=== PATIENT | male | born 1940 | race Two or more races ===

== ENCOUNTER → 2017-03-02 | Outpatient (REF) | payer MEDICARE ==
[2017-03-02 17:59] LABS: BASO % 0.5 % (0.0-1.0); EOS # 0.1 K/mm3 (0.0-0.50); EOS % 1.3 % (0.0-3.0); LARGE UNSTAINED CELL # 0.2 K/mm3 (0.0-0.4); LARGE UNSTAINED CELL % 2.3 % (0.0-4.0); LYMPH # 2.2 K/mm3 (1.5-4.5); MEAN CORPUSCULAR HEMOGLOBIN 32.1 pg (27.0-33.0); MEAN CORPUSCULAR HGB CONC 33.2 g/dl (32.0-36.5); MEAN CORPUSCULAR VOLUME 96.5 fl (80.0-96.0); MONO # 0.5 K/mm3 (0.0-0.8); MONO % 6.6 % (0.0-5.0); NEUTROPHILS % 57.4 % (36.0-66.0); PLATELET COUNT, AUTOMATED 166 k/mm3 (150-450); RED CELL DISTRIBUTION WIDTH 13.3 % (11.5-14.5)
[2017-03-02 19:05] LABS: ALBUMIN 3.9 GM/DL (3.2-5.2); ALBUMIN/GLOBULIN RATIO 1.34 (1.00-1.93); BILIRUBIN,TOTAL 0.7 MG/DL (0.2-1.0); CALCIUM LEVEL 8.8 MG/DL (8.8-10.2); CREATININE FOR GFR 1.26 MG/DL (0.70-1.30); FREE T4 0.95 NG/DL (0.76-1.46); GLOMERULAR FILTRATION RATE 59.6 (>42); POTASSIUM SERUM 4.1 MEQ/L (3.5-5.1); TOTAL PROTEIN 6.8 GM/DL (6.4-8.2)
== END ==
LOC: M LAB REF 17:21
PROVIDERS: ATTEND Internal Medicine
DX: Z00.00 Encounter for general adult medical examination without abnormal findings (principal); Z79.02 Long term (current) use of antithrombotics/antiplatelets; E04.1 Nontoxic single thyroid nodule

== ENCOUNTER → 2017-04-29 | Outpatient (REF) | payer MEDICARE | LOC: M LAB REF 12:58 | PROVIDERS: ATTEND Internal Medicine Endocrinology, Diabetes & Metabolism | DX: E04.2 Nontoxic multinodular goiter (principal) ==

== ENCOUNTER → 2019-10-03 | Outpatient (REF) | payer MEDICARE ==
[2019-10-03 19:22] LABS: APPEARANCE, URINE CLEAR (CLEAR); BACTERIA, URINE AUTO NEGATIVE (NEGATIVE); BILIRUBIN, URINE AUTO NEGATIVE (NEGATIVE); BLOOD, URINE BLOOD 2+ (NEGATIVE); COLOR, URINE YELLOW (YELLOW); GLUCOSE, URINE (UA) AUTO NEGATIVE (NEGATIVE); KETONE, URINE AUTO NEGATIVE (NEGATIVE); LEUKOCYTE ESTERASE, URINE AUTO NEGATIVE (NEGATIVE); NITRITE, URINE AUTO NEGATIVE (NEGATIVE); PROTEIN, URINE AUTO NEGATIVE (NEGATIVE); RBC, URINE AUTO 5 /HPF (0-3); SPECIFIC GRAVITY URINE AUTO 1.017 (1.002-1.035); SQUAMOUS EPITHELIAL CELL UR AU 0 /HPF (0-6); UROBILINOGEN, URINE AUTO 0.2 mg/dL (0.0-2.0); WBC, URINE AUTO 1 /HPF (0-3)
== END ==
LOC: M SMT 18:02
PROVIDERS: ATTEND Nurse Practitioner Family
DX: Z85.51 Personal history of malignant neoplasm of bladder (principal)

== ENCOUNTER → 2019-11-30 | Outpatient (REF) | payer MEDICARE | LOC: M SMT 17:06 | PROVIDERS: ATTEND Urology | DX: Z85.51 Personal history of malignant neoplasm of bladder (principal) ==

== ENCOUNTER → 2020-08-20 | Outpatient (REF) | payer MEDICARE | LOC: M SMT 13:11 | PROVIDERS: ATTEND Urology | DX: Z85.51 Personal history of malignant neoplasm of bladder (principal) ==

== ENCOUNTER → 2021-01-30 | Outpatient (CLI) | payer MEDICARE ==
--- NOTE | 2021-02-02 13:56 | SLEEPCENT ---
NOCTURNAL POLYSOMNOGRAPHY DATE: 01/30/2021 ORDERED BY: TROY Swain Nocturnal polysomnography was performed for evaluation of sleep physiology in this patient with a history of snoring and excessive somnolence. 8 hours and 1 minute of data were reviewed. There were 297 minutes of sleep identified. Sleep latency was prolonged at 78 minutes. REM latency was short at 83 minutes. Sleep architecture was fair with two REM cycles. There was a period of wake between 0245 and 0400 a.m. resulting in reduced sleep efficiency at 62.4%. The electrocardiogram showed what appeared to be a sinus rhythm with PVCs, average heart rate 50 beats per minute, and rate range 40 to 60. EEG showed normal waveforms for wake and sleep. There were 126 respiratory events identified of 10 seconds in duration or greater for an apnea-hypopnea index of 25.5. The events were primarily obstructive, but 17 mixed and central apneas were seen. Events were not exclusive to sleep stage nor body posture, although they were more frequent in the supine position. Arousals from respiratory events occurred 12.3 times per hour and oxygen desaturations were seen to the low 80s. There was some minor activity in the limb leads with arousals occurring only two times per hour. IMPRESSION: Obstructive sleep apnea syndrome (G47.33), apnea-hypopnea index 25.5. RECOMMENDATION: The patient should be encouraged to return to [facility] for pressure [facility]. In the interim, alcohol and sedative avoidance should be practiced and caution exercised during the operation of motor vehicles.
== END ==
LOC: M SLEEP 20:00
PROVIDERS: ATTEND Nurse Practitioner Family
DX: G47.33 Obstructive sleep apnea (adult) (pediatric) (principal)

== ENCOUNTER → 2021-02-09 | Outpatient (REF) | payer MEDICARE | LOC: M SMT 14:07 | PROVIDERS: ATTEND Urology | DX: C80.1 Malignant (primary) neoplasm, unspecified (principal) ==

== ENCOUNTER → 2021-08-17 | Outpatient (REF) | payer MEDICARE | LOC: M SMT 13:21 | PROVIDERS: ATTEND Urology | DX: C80.1 Malignant (primary) neoplasm, unspecified (principal) ==

== ENCOUNTER → 2022-02-15 | Outpatient (REF) | payer MEDICARE | LOC: M SMT 17:29 | PROVIDERS: ATTEND Urology | DX: C80.1 Malignant (primary) neoplasm, unspecified (principal); Z85.51 Personal history of malignant neoplasm of bladder ==

== ENCOUNTER 2022-03-25 12:24 | Emergency (ER) | payer MEDICARE ==
[~2022-03-25] VITALS: Ht 177.8 cm; Wt 103.1 kg
[2022-03-25] MEDS ORDERED: ceFAZolin SOD 2 GM in IV 1 EA IV ONE (12:35)
[2022-03-25] MEDS: MORPHINE 4 MG/ML 1ML VIAL/SYRINGE IV PRN ×2 (12:43→13:16)
[2022-03-25 12:55] LABS: BASO % 0.5 % (0.0-1.0); EOS # 0.1 10^3/uL (0.0-0.5); EOS % 0.7 % (0.0-3.0); HEMATOCRIT 45.6 % (42.0-52.0); HEMOGLOBIN 15.3 g/dl (13.5-17.5); LYMPH # 1.7 10^3/uL (1.5-5.0); LYMPH % 20.1 % (24.0-44.0); MEAN CORPUSCULAR HEMOGLOBIN 30.7 pg (27.0-33.0); MEAN CORPUSCULAR HGB CONC 33.6 g/dl (32.0-36.5); MEAN CORPUSCULAR VOLUME 91.4 fl (80.0-96.0); MONO # 0.9 10^3/uL (0.0-0.8); MONO % 9.9 % (2.0-8.0); NEUTROPHILS # 5.9 10^3/uL (1.5-8.5); NEUTROPHILS % 68.3 % (36.0-66.0); PLATELET COUNT, AUTOMATED 163 10^3/uL (150-450); RED BLOOD COUNT 4.99 10^6/uL (4.30-6.10); WHITE BLOOD COUNT 8.6 10^3/uL (4.0-10.0)
[2022-03-25 13:02] LABS: INR 1.48; PROTHROMBIN TIME 18.3 SECONDS (12.7-14.5)
[2022-03-25 13:04] LABS: PARTIAL THROMBOPLASTIN TIME 56.5 SECONDS (25.9-37.0)
[2022-03-25 13:19] LABS: ALBUMIN 3.8 GM/DL (3.2-5.2); BILIRUBIN,TOTAL 0.7 MG/DL (0.2-1.0); CALCIUM LEVEL 9.1 MG/DL (8.8-10.2); CREATININE FOR GFR 1.46 MG/DL (0.70-1.30); GLOMERULAR FILTRATION RATE 49.6 (>42); POTASSIUM SERUM 3.8 MEQ/L (3.5-5.1)
[2022-03-25 13:41] LABS: RSV AMPLIFICATION NEGATIVE (NEGATIVE)
[2022-03-25] MEDS ORDERED: LIDOCAINE 2% W/EPINEPHRINE 20ML VIAL **PRES FREE INJ ONE (14:05)
[2022-03-25] MEDS ORDERED: MORPHINE 4 MG/ML 1ML VIAL/SYRINGE IV ONE (14:30)
[2022-03-25] MEDS ORDERED: NS 1,000 ML IV SCH (17:15)
[2022-03-25] MEDS: fentaNYL 100 MCG/2 ML INJECTION IV PRN ×2 (17:20→17:53)
[2022-03-25] MEDS: propofoL 200 MG/20 ML VIAL IV.PROC PRN ×2 (17:54→17:56)
[2022-03-25] MEDS ORDERED: OXYCODONE/APAP 5MG/325MG(BULK FOR ED) 1 TABLET PO ONE (19:10)
[2022-03-25] MEDS ORDERED: PERC5TAB12 PO (19:18)
[2022-03-25] MEDS ORDERED: CEPH500C PO (19:18)
[2022-03-25 19:30] VITALS: BP 169/80
== END 2022-03-25 19:30 | disposition home or self-care (01) ==
LOC: EDBD 12:24 → M ED 12:24
DX: S61.412A Laceration without foreign body of left hand, initial encounter (principal); S52.502A Unspecified fracture of the lower end of left radius, initial encounter for closed fracture; S52.612A Displaced fracture of left ulna styloid process, initial encounter for closed fracture; W31.89XA Contact with other specified machinery, initial encounter; Y92.099 Unspecified place in other non-institutional residence as the place of occurrence of the external cause; Y93.9 Activity, unspecified; Y99.9 Unspecified external cause status; I70.0 Atherosclerosis of aorta; I45.10 Unspecified right bundle-branch block; I48.91 Unspecified atrial fibrillation; Z88.0 Allergy status to penicillin
CPT/HCPCS: 12002; 25650; 71045; 73070; 73090; 73120; 80053; 85025; 85610; 85730; 86850; 86900; 86901; 87631; 93005; 93041; 94760; 96361; 96365; 96374; 96375; 96376; 99152; 99285; J0690; J2270; J3010

== ENCOUNTER → 2022-04-04 | Outpatient (CLI) | payer MEDICARE ==
[~2022-04-04] MED LIST: ATOR1TAB21 PO; CEPH500C PO; LISI20TA35 PO; METO25TA4 PO; PERC5TAB12 PO; PRAD150C6 PO
== END ==
LOC: M LABSMTC 09:22
PROVIDERS: ATTEND Anesthesiology
DX: Z01.812 Encounter for preprocedural laboratory examination (principal); Z20.822 Contact with and (suspected) exposure to COVID-19

== ENCOUNTER 2022-04-07 09:43 | Observation (INO) | payer MEDICARE ==
[2022-04-07] VITALS (8 sets, daily range): BP systolic 140–166; BP diastolic 71–79
[~2022-04-07] VITALS: Ht 177.8 cm; Wt 98.0 kg
[2022-04-07] MEDS ORDERED: LR 1,000 ML IV SCH ×2 (10:05→14:50)
[2022-04-07] MEDS ORDERED: CLINDAMYCIN 900 MG in IV 1 EA IV ONE (12:00)
[2022-04-07] MEDS ORDERED: ONDANSETRON 4MG/2ML VIAL As Ordered ONE ×2 (12:38→14:52)
[2022-04-07] MEDS ORDERED: propofoL 200 MG/20 ML VIAL As Ordered ONE (12:38)
[2022-04-07] MEDS ORDERED: LIDOCAINE 2% 100MG/5ML SDV (FOR ANES.) As Ordered ONE (12:38)
[2022-04-07] MEDS ORDERED: dexameTHASONE 4 MG/ML 1ML VIAL (J1100 PER 1MG) As Ordered ONE (12:38)
[2022-04-07] MEDS ORDERED: fentaNYL 100 MCG/2 ML INJECTION As Ordered ONE (12:38)
[2022-04-07] MEDS ORDERED: MIDAZOLAM INJ 2MG/2ML VIAL (J2250 PER 1MG) As Ordered ONE (12:38)
[2022-04-07] MEDS ORDERED: MIDAZOLAM INJ 2MG/2ML VIAL (J2250 PER 1MG) IV PRN (12:45)
[2022-04-07] MEDS ORDERED: fentaNYL 100 MCG/2 ML INJECTION IV PRN ×2 (12:45→14:50)
[2022-04-07] MEDS ORDERED: ROPIvacaine 0.5% 30ML INJECTION (J2795 PER 1MG) PN ONE (12:45)
[2022-04-07] MEDS ORDERED: dexameTHASONE 10MG/1ML VIAL PRES.FREE (J1100 PER 1MG) PN ONE (12:45)
[2022-04-07] MEDS ORDERED: EPINEPHrine INJ 1 MG/ML 1ML AMP PN ONE (12:45)
[2022-04-07] MEDS ORDERED: BACITRACIN OINTMENT 30GM TUBE As Ordered ONE (13:19)
[2022-04-07] MEDS ORDERED: ROCURONIUM BROMIDE 50 MG/5 ML VIAL As Ordered ONE (13:37)
[2022-04-07] MEDS ORDERED: PHENYLephrine 500MCG 5ML (100MCG/ML) SYRINGE As Ordered ONE (13:56)
[2022-04-07] MEDS ORDERED: LACRILUBE (AKWA TEARS) OPHTH OINT 3.5 GM As Ordered ONE (13:56)
[2022-04-07] MEDS ORDERED: BUPIVACAINE HCL 0.25% 30ML VIAL As Ordered ONE (14:36)
[2022-04-07] MEDS ORDERED: SUGAMMADEX SODIUM 500 MG/5 ML VIAL (BRIDION) As Ordered ONE (14:48)
[2022-04-07] MEDS ORDERED: oxyCODONE 5MG TAB PO PRN (14:50)
[2022-04-07] MEDS ORDERED: ONDANSETRON 4MG/2ML VIAL IV PRN (14:50)
[2022-04-07] MEDS ORDERED: ACETAMINOPHEN 1000MG 100ML IV BTL (OFIRMEV) (J0131 PER 10MG) As Ordered ONE (14:52)
[2022-04-07] MEDS ORDERED: PERC5TAB12 PO (15:18)
[2022-04-07] MEDS ORDERED: SENNA 8.6 MG TAB (SENOKOT) PO PRN (16:45)
[2022-04-07] MEDS ORDERED: ACETAMINOPHEN TAB 650MG DOSE (2X325MG) PO PRN (16:45)
[2022-04-07] MEDS ORDERED: MORPHINE 4 MG/ML 1ML VIAL/SYRINGE IV PRN ×2 (16:45→18:05)
[2022-04-07] MEDS ORDERED: MORPHINE 2 MG/ML 1ML VIAL IV PRN (18:05)
[2022-04-07] MEDS ORDERED: METOPROLOL TART 12.5 MG PER 1/2 TAB PO ONE (18:05)
[2022-04-07] MEDS ORDERED: NS 1,000 ML IV SCH (18:30)
[2022-04-07] MEDS: CLINDAMYCIN 600 MG in IV 1 EA IV SCH (22:19)
[2022-04-08 02:00] VITALS: BP 131/67
[2022-04-08 05:49] VITALS: BP 127/66
[2022-04-08 06:02] LABS: HEMATOCRIT 45.5 % (42.0-52.0); HEMOGLOBIN 15.3 g/dl (13.5-17.5); MEAN CORPUSCULAR HEMOGLOBIN 30.2 pg (27.0-33.0); MEAN CORPUSCULAR HGB CONC 33.6 g/dl (32.0-36.5); MEAN CORPUSCULAR VOLUME 89.9 fl (80.0-96.0); PLATELET COUNT, AUTOMATED 190 10^3/uL (150-450); RED BLOOD COUNT 5.06 10^6/uL (4.30-6.10); WHITE BLOOD COUNT 15.7 10^3/uL (4.0-10.0)
[2022-04-08 06:29] LABS: CALCIUM LEVEL 8.8 MG/DL (8.8-10.2); CREATININE FOR GFR 1.43 MG/DL (0.70-1.30); GLOMERULAR FILTRATION RATE 50.8 (>42); MAGNESIUM LEVEL 2.3 MG/DL (1.8-2.4); POTASSIUM SERUM 4.4 MEQ/L (3.5-5.1)
[2022-04-08] MEDS: CLINDAMYCIN 600 MG in IV 1 EA IV SCH (06:35)
[2022-04-08] MEDS ORDERED: ATORVASTATIN 20 MG TAB PO SCH (09:00)
== END 2022-04-08 11:25 | disposition home or self-care (01) ==
LOC: M SDC 09:43 → M MS5PR 09:44
PROVIDERS: ADMIT Internal Medicine; ATTEND Internal Medicine
DX: S52.302A Unspecified fracture of shaft of left radius, initial encounter for closed fracture (principal); S52.615A Nondisplaced fracture of left ulna styloid process, initial encounter for closed fracture; W29.8XXA Contact with other powered hand tools and household machinery, initial encounter; Y92.096 Garden or yard of other non-institutional residence as the place of occurrence of the external cause; I48.91 Unspecified atrial fibrillation; Z85.51 Personal history of malignant neoplasm of bladder; I12.9 Hypertensive chronic kidney disease with stage 1 through stage 4 chronic kidney disease, or unspecified chronic kidney disease; G47.33 Obstructive sleep apnea (adult) (pediatric); N18.30 Chronic kidney disease, stage 3 unspecified; Z87.891 Personal history of nicotine dependence; Z79.899 Other long term (current) drug therapy; Z79.01 Long term (current) use of anticoagulants; Z88.0 Allergy status to penicillin; Z91.013 Allergy to seafood
CPT/HCPCS: 25515; 36415; 76000; 80048; 83735; 85027; 96374; 96376; 97165; 97530; C1713; G0378; J0131; J1100; J2250; J2370; J2405; J3010

== ENCOUNTER → 2022-04-15 | Outpatient (CLI) | payer MEDICARE | LOC: M SOG 08:11 | PROVIDERS: ATTEND Orthopaedic Surgery Hand Surgery | DX: M25.839 Other specified joint disorders, unspecified wrist (principal) ==

== ENCOUNTER → 2022-05-06 | Outpatient (CLI) | payer MEDICARE | LOC: M SOG 08:12 | PROVIDERS: ATTEND Orthopaedic Surgery Hand Surgery | DX: S52.302D Unspecified fracture of shaft of left radius, subsequent encounter for closed fracture with routine healing (principal); S52.612D Displaced fracture of left ulna styloid process, subsequent encounter for closed fracture with routine healing ==

== ENCOUNTER → 2022-07-04 | Outpatient (CLI) | payer MEDICARE | LOC: M LABSMTC 10:16 | PROVIDERS: ATTEND Anesthesiology | DX: Z01.812 Encounter for preprocedural laboratory examination (principal); Z20.822 Contact with and (suspected) exposure to COVID-19 ==

== ENCOUNTER 2022-07-08 10:00 | Day surgery (SDC) | payer MEDICARE ==
[~2022-07-08] VITALS: Ht 177.8 cm; Wt 97.5 kg
[~2022-07-08 10:00] MED LIST changes: +NS 1,000 ML IV ONE
[2022-07-08] MEDS ORDERED: propofoL 200 MG/20 ML VIAL As Ordered ONE (12:19)
[2022-07-08] MEDS ORDERED: LIDOCAINE 2% 100MG/5ML SDV (FOR ANES.) As Ordered ONE (12:19)
[2022-07-08 13:00] VITALS: BP 166/79
== END 2022-07-08 13:15 | disposition home or self-care (01) ==
LOC: M OPP 10:00
PROVIDERS: ATTEND Surgery
DX: K63.5 Polyp of colon (principal); K57.30 Diverticulosis of large intestine without perforation or abscess without bleeding; R19.5 Other fecal abnormalities; I10 Essential (primary) hypertension; E78.5 Hyperlipidemia, unspecified; G47.30 Sleep apnea, unspecified; Z87.891 Personal history of nicotine dependence; Z85.51 Personal history of malignant neoplasm of bladder; Z79.01 Long term (current) use of anticoagulants; Z79.02 Long term (current) use of antithrombotics/antiplatelets; Z79.899 Other long term (current) drug therapy; Z80.8 Family history of malignant neoplasm of other organs or systems; Z80.52 Family history of malignant neoplasm of bladder

== ENCOUNTER → 2024-04-05 | Outpatient (CLI) | payer MEDICARE ==
[~2024-04-05] MED LIST changes: -NS 1,000 ML IV ONE
== END ==
LOC: M RAD 07:25
PROVIDERS: ATTEND Family Medicine
DX: R74.01 Elevation of levels of liver transaminase levels (principal); K76.0 Fatty (change of) liver, not elsewhere classified; N28.1 Cyst of kidney, acquired

== ENCOUNTER → 2025-03-18 | Outpatient (CLI) | payer MEDICARE | LOC: M RAD 13:07 | PROVIDERS: ATTEND Nurse Practitioner Family | DX: E04.2 Nontoxic multinodular goiter (principal) ==

== ENCOUNTER 2025-06-04 10:54 | Emergency (ER) | payer MEDICARE ==
[~2025-06-04] VITALS: Ht 177.8 cm; Wt 97.3 kg
[2025-06-04] MEDS ORDERED: BACI500O8 TOP (11:49)
[2025-06-04] MEDS ORDERED: [UNRECOGNIZED DRUG - CODE] EX (11:49)
[2025-06-04] MEDS: TETANUS/DIPHTH/ACEL. PERTUSSIS 0.5 ML SYR IM ONE (12:02)
[2025-06-04 12:11] VITALS: BP 124/61; TEMP 97.2; O2SAT 96
== END 2025-06-04 12:16 | disposition home or self-care (01) ==
LOC: M ED 10:54
DX: T24.231A Burn of second degree of right lower leg, initial encounter (principal); Z88.0 Allergy status to penicillin; Z88.8 Allergy status to other drugs, medicaments and biological substances; Z79.2 Long term (current) use of antibiotics; Z79.899 Other long term (current) drug therapy; Z23 Encounter for immunization

== ENCOUNTER 2025-06-24 08:44 | Emergency (ER) | payer MEDICARE ==
[~2025-06-24] VITALS: Ht 177.8 cm; Wt 99.3 kg
[~2025-06-24 08:44] MED LIST changes: +BACI500O8 TOP; +[UNRECOGNIZED DRUG - CODE] EX
[2025-06-24] MEDS ORDERED: VITATAB73 PO (09:14)
[2025-06-24] MEDS ORDERED: ELIQ2.5T PO (09:14)
[2025-06-24] MEDS ORDERED: HOME MED LIST COMPLETE! XX SCH (09:35)
[2025-06-24 09:36] LABS: BASO # 0.0 10^3/uL (0.0-0.2); BASO % 0.4 % (0.0-1.0); EOS # 0.1 10^3/uL (0.0-0.5); EOS % 0.9 % (0.0-3.0); LYMPH # 2.8 10^3/uL (1.5-5.0); LYMPH % 28.8 % (24.0-44.0); MONO # 1.0 10^3/uL (0.0-0.8); MONO % 10.6 % (2.0-8.0); NEUTROPHILS # 5.8 10^3/uL (1.5-8.5); NEUTROPHILS % 58.8 % (36.0-66.0); PLATELET COUNT, AUTOMATED 155 10^3/uL (150-450)
[2025-06-24 10:11] LABS: CALCIUM LEVEL 8.7 MG/DL (8.3-10.6); CARBON DIOXIDE LEVEL 28.0 MMOL/L (20-31); CHLORIDE LEVEL 108.0 MMOL/L (98-107); CREATININE FOR GFR 1.66 MG/DL (0.70-1.30); GLOMERULAR FILTRATION RATE 40.9 (>35); MAGNESIUM LEVEL 2.1 MG/DL (1.8-2.4); POTASSIUM SERUM 4.1 MMOL/L (3.5-5.1); SODIUM LEVEL 146.0 MMOL/L (136-145)
[2025-06-24 10:14] LABS: FREE T4 1.17 NG/DL (0.89-1.76)
[2025-06-24 11:48] VITALS: BP 155/67; TEMP 96.8; O2SAT 99
== END 2025-06-24 11:52 | disposition home or self-care (01) ==
LOC: M ED 08:44
DX: R00.1 Bradycardia, unspecified (principal); I49.3 Ventricular premature depolarization; I10 Essential (primary) hypertension; E11.9 Type 2 diabetes mellitus without complications; I48.91 Unspecified atrial fibrillation; Z99.89 Dependence on other enabling machines and devices; Z88.0 Allergy status to penicillin; Z91.013 Allergy to seafood; Z79.51 Long term (current) use of inhaled steroids; Z79.899 Other long term (current) drug therapy